=== PATIENT | female | born 1990 | race Caucasian/White ===

== ENCOUNTER 2017-11-09 12:19 | Inpatient (IN) | payer OTHER ==
[~2017-11-09] VITALS: Ht 147.3 cm; Wt 73.6 kg
[2017-11-09 14:00] VITALS: BP 143/86
[2017-11-09 14:03] LABS: HEMATOCRIT 42.5 % (37.0-47.0); HEMOGLOBIN 14.7 g/dl (12.0-16.0); MEAN CORPUSCULAR HGB 32.5 pg (27.0-31.0); MEAN CORPUSCULAR HGB CONC 34.6 g/dl (33.0-37.0); MEAN PLATELET VOLUME 10.2 fl (9.6-12.3); PLATELET COUNT AUTOMATED 341 10*3/uL (130-400); RED BLOOD COUNT 4.52 10*6/uL (4.10-5.10); RED CELL DISTRI WIDTH 12.5 % (0-14.5); WHITE BLOOD COUNT 12.8 10*3/uL (4.8-10.8)
[2017-11-09 14:09] LABS: BILIRUBIN 1+ (NEGATIVE); BLOOD 3+ (NEGATIVE); CLARITY SL CLOUDY (CLEAR); COLOR YELLOW (YELLOW); GLUCOSE NEGATIVE (NEGATIVE); KETONE 3+ (NEGATIVE); LEUKO ESTERASE TRACE (NEGATIVE); NITRITE NEGATIVE (NEGATIVE); SPECIFIC GRAVITY 1.015 (1.005-1.030)
[2017-11-09] MEDS ORDERED: NEURONTIN800 MG PO (14:15)
[2017-11-09] MEDS ORDERED: CLONIDINE0.2 MG PO (14:16)
[2017-11-09] MEDS ORDERED: SEROQUEL100 MG PO (14:16)
[2017-11-09 14:17] LABS: BACTERIA 1+; EPITHELIAL CELLS 16-20; MUCOUS 2+
[2017-11-09] MEDS ORDERED: TRAZODONE100 MG PO (14:17)
[2017-11-09] MEDS ORDERED: WELLBUTRIN XL300 MG PO (14:17)
[2017-11-09 14:19] LABS: RBC 31-40 rbc/hpf (0-2)
[2017-11-09] MEDS ORDERED: DEPAKOTE500 MG PO (14:20)
[2017-11-09 14:21] LABS: ALBUMIN 4.3 gm/dl (3.1-4.5); ALKALINE PHOSPHATASE 65 U/L (45-117); BUN 9 mg/dl (7-24); CHLORIDE 107 mmol/L (98-107); CREATININE 0.69 mg/dL (0.55-1.02); POTASSIUM 3.5 mmol/L (3.5-5.1); SGOT/AST 17 IU/L (3-35); SGPT/ALT 15 U/L (12-78); SODIUM 140 mmol/L (136-145); TOTAL PROTEIN 7.8 gm/dL (6.4-8.2)
[2017-11-09] MEDS ORDERED: ACID REDUCER75 MG PO (14:21)
[2017-11-09 14:23] LABS: PLATELET SUFFICIENCY NORMAL (NORMAL); TOTAL CELLS COUNTED 100 #CELLS
[2017-11-09 14:24] LABS: ETHYL ALCOHOL < 3.0 mg/dl (<3)
[2017-11-09] MEDS ORDERED: DEPAKOTE ER250 MG PO (15:02)
[2017-11-09 15:04] LABS: URINE AMPHETAMINES < 1000 (1000ng/ml); URINE BARBITURATES < 200 (200ng/ml); URINE BENZODIAZEPINES < 200 (200ng/ml); URINE CANNABINOIDS (THC) < 50 (50ng/ml); URINE COCAINE < 300 (300ng/ml); URINE METHADONE < 300 (300ng/ml); URINE OPIATES < 300 (300ng/ml)
[2017-11-09 15:07] LABS: URINE PHENCYCLIDINE < 25 (25ng/ml)
[2017-11-09 16:00] VITALS: BP 136/82
[2017-11-09 20:00] VITALS: BP 100/55
[2017-11-10] VITALS: BP 124/81
[2017-11-10 04:00] VITALS: BP 108/58
[2017-11-10 08:00] VITALS: BP 102/58; BP 96/54
[2017-11-10 12:00] VITALS: BP 104/64; BP 184/71
[2017-11-10 16:00] VITALS: BP 116/67
[2017-11-10 20:00] VITALS: BP 100/58
[2017-11-11] VITALS: BP 94/45
[2017-11-11 06:10] LABS: BASO % 0.5 % (0.0-1.0); EOS # 0.4 10*3/uL (0.0-0.4); EOS % 4.5 % (1.0-4.0); HEMATOCRIT 39.1 % (37.0-47.0); HEMOGLOBIN 13.3 g/dl (12.0-16.0); LYMPH # 4.5 10*3/uL (1.3-4.4); LYMPH % 51.5 % (27.0-41.0); MEAN CELL VOLUME 96.5 fl (81.0-99.0); MEAN CORPUSCULAR HGB 32.8 pg (27.0-31.0); MEAN PLATELET VOLUME 10.3 fl (9.6-12.3); MONO # 0.8 10*3/uL (0.1-1.0); MONO % 9.4 % (3.0-9.0); NEUT % 33.9 % (47.0-73.0); PLATELET COUNT AUTOMATED 258 10*3/uL (130-400); RED BLOOD COUNT 4.05 10*6/uL (4.10-5.10); RED CELL DISTRI WIDTH 12.5 % (0-14.5); WHITE BLOOD COUNT 8.7 10*3/uL (4.8-10.8)
[2017-11-11 08:00] VITALS: BP 110/65
[2017-11-11 12:00] VITALS: BP 143/62
[2017-11-11 16:00] VITALS: BP 122/76
[2017-11-11 20:00] VITALS: BP 108/44
[2017-11-12] VITALS: BP 93/71
[2017-11-12 05:16] VITALS: BP 132/76
[2017-11-12 06:54] LABS: CREATININE 0.78 mg/dL (0.55-1.02)
[2017-11-12 08:00] VITALS: BP 101/48
[2017-11-12 12:00] VITALS: BP 105/64
[2017-11-12 16:00] VITALS: BP 132/72
[2017-11-12 20:00] VITALS: BP 123/82
[2017-11-13] VITALS: BP 92/52
[2017-11-13 05:21] VITALS: BP 124/70
[2017-11-13 08:00] VITALS: BP 110/61
[2017-11-13 12:00] VITALS: BP 138/79
[2017-11-13] MEDS ORDERED: 'CLONIDINE0.1 MG PO (14:01)
[2017-11-13] MEDS ORDERED: ZOFRAN4 MG PO (14:01)
[2017-11-13] MEDS ORDERED: ROPINIROLE HYD0.5 MG PO (14:01)
[2017-11-13] MEDS ORDERED: BUDEPRION XL150 MG PO (14:01)
== END 2017-11-13 16:20 | disposition home or self-care (01) | DRG 897 ==
LOC: 4E 12:19
PROVIDERS: Family Medicine; Internal Medicine
DX: F11.23 Opioid dependence with withdrawal (principal); R65.10 Systemic inflammatory response syndrome (SIRS) of non-infectious origin without acute organ dysfunction; L25.9 Unspecified contact dermatitis, unspecified cause; Z71.6 Tobacco abuse counseling; I10 Essential (primary) hypertension; G40.909 Epilepsy, unspecified, not intractable, without status epilepticus; F41.1 Generalized anxiety disorder; F31.9 Bipolar disorder, unspecified; F43.10 Post-traumatic stress disorder, unspecified; K21.9 Gastro-esophageal reflux disease without esophagitis; E66.9 Obesity, unspecified; F19.10 Other psychoactive substance abuse, uncomplicated; F17.210 Nicotine dependence, cigarettes, uncomplicated; R00.0 Tachycardia, unspecified; Z90.49 Acquired absence of other specified parts of digestive tract; Z88.8 Allergy status to other drugs, medicaments and biological substances; Z88.1 Allergy status to other antibiotic agents; Z91.041 Radiographic dye allergy status; Z68.33 Body mass index [BMI] 33.0-33.9, adult